=== PATIENT | female | born 1945 | race African-American/Black ===

== ENCOUNTER → 2016-10-26 | Outpatient (CLI) | payer MEDICARE, OTHER | LOC: WI 09:08 | PROVIDERS: ATTEND Internal Medicine | DX: Z12.31 Encounter for screening mammogram for malignant neoplasm of breast (principal) | CPT/HCPCS: 77063; G0202; 77067 ==

== ENCOUNTER → 2016-11-09 | Outpatient (CLI) | payer MEDICARE, OTHER | LOC: OD 14:13 | PROVIDERS: ATTEND Internal Medicine | DX: R05 Cough (principal) | CPT/HCPCS: 71020 ==

== ENCOUNTER → 2016-11-30 | Outpatient (CLI) | payer MEDICARE, OTHER ==
[2016-11-30 11:18] LABS: ALANINE AMINOTRANSFERASE 30 U/L (9-52); ALBUMIN 4.6 g/dL (3.5-5.0); ALKALINE PHOSPHATASE 55 U/L (38-126); ANION GAP 13 (5-19); ASPARTATE AMINO TRANSFERASE 17 U/L (14-36); BILIRUBIN,DIRECT 0.3 mg/dL (0.0-0.4); BILIRUBIN,TOTAL 1.1 mg/dL (0.2-1.3); BLOOD UREA NITROGEN 15 mg/dL (7-20); CALCIUM 10.4 mg/dL (8.4-10.2); CARBON DIOXIDE 28 mmol/L (22-30); CHLORIDE 103 mmol/L (98-107); CHOLESTEROL 145.89 mg/dL (0-200); CREATININE RESULT 0.63 mg/dL (0.52-1.25); Direct HDL 59 mg/dL (>40); GLUCOSE 145 mg/dL (75-110); POTASSIUM 3.8 mmol/L (3.6-5.0); SODIUM 143.6 mmol/L (137-145); TOTAL PROTEIN 7.1 g/dL (6.3-8.2); TRIGLYCERIDES 87 mg/dL (<150)
[2016-11-30 11:29] LABS: DIRECT LDL 63 mg/dL (<100)
== END ==
LOC: OD 10:04
PROVIDERS: ATTEND Internal Medicine
DX: I34.0 Nonrheumatic mitral (valve) insufficiency (principal); I10 Essential (primary) hypertension; I73.9 Peripheral vascular disease, unspecified; Z79.899 Other long term (current) drug therapy; G45.9 Transient cerebral ischemic attack, unspecified; E08.9 Diabetes mellitus due to underlying condition without complications; I49.3 Ventricular premature depolarization; I34.1 Nonrheumatic mitral (valve) prolapse; R94.30 Abnormal result of cardiovascular function study, unspecified; E78.5 Hyperlipidemia, unspecified; R94.31 Abnormal electrocardiogram [ECG] [EKG]; R00.2 Palpitations; M12.9 Arthropathy, unspecified; E66.9 Obesity, unspecified
CPT/HCPCS: 36415; 80053; 80061; 83036

== ENCOUNTER → 2017-03-20 | Outpatient (CLI) | payer MEDICARE, OTHER ==
[2017-03-20 09:11] LABS: APPEARANCE,URINE CLEAR; BILIRUBIN,URINE NEGATIVE (NEGATIVE); GLUCOSE, URINE NEGATIVE (NEGATIVE); KETONES,URINE NEGATIVE (NEGATIVE); LEUKOCYTE ESTERASE,URINE NEGATIVE (NEGATIVE); NITRITE,URINE NEGATIVE (NEGATIVE); PROTEIN,URINE NEGATIVE (NEGATIVE); UROBILINOGEN,URINE NEGATIVE mg/dL (<2.0)
[2017-03-20 09:13] LABS: HEMATOCRIT 36.2 % (36.0-47.0); HGB HCT DIFFERENCE -0.2; MEAN CORPUSCULAR HEMOGLOBIN 28.4 pg (27.0-33.4); MEAN CORPUSCULAR HGB CONC 33.1 g/dL (32.0-36.0); MEAN CORPUSCULAR VOLUME 86 fl (80-97); RED BLOOD COUNT 4.22 10^6/uL (3.72-5.28); RED CELL DISTRIBUTION WIDTH 13.6 % (11.5-14.0); WHITE BLOOD COUNT 5.3 10^3/uL (4.0-10.5)
[2017-03-20 09:33] LABS: ANION GAP 11 (5-19); BLOOD UREA NITROGEN 12 mg/dL (7-20); CALCIUM 9.8 mg/dL (8.4-10.2); CARBON DIOXIDE 27 mmol/L (22-30); CHLORIDE 100 mmol/L (98-107); GLUCOSE 152 mg/dL (75-110); POTASSIUM 3.7 mmol/L (3.6-5.0); SODIUM 137.8 mmol/L (137-145)
--- NOTE | 2017-03-20 11:00 | RADIOLOGY REPORT (SQ) ---
EXAM DESCRIPTION: DUPLEX ART/KENDRA FLOW COMPLETE COMPLETED DATE/TIME: 03/20/2017 9:53 am REASON FOR STUDY: ESSENTIAL HTN/ DIABETES MELLITIS TYPE 2 E11.9 TYPE 2 DIABETES MELLITUS WITHOUT CO MPLICATIONS I10 ESSENTIAL (PRIMARY) HYPERTENSION COMPARISON: None. TECHNIQUE: Realtime and static grayscale images acquired. Selected color Doppler, velocities and spe ctral images recorded. LIMITATIONS: None. FINDINGS: RIGHT KIDNEY: RENAL ARTERY VELOCITIES: 35.3 cm/sec. Segmental artery velocity 48.9 cm/sec. RENAL VEIN: Color doppler flow present, patent. VELOCITY RATIO: 1.1. Normal waveforms. KIDNEY: Normal size. No significant pathology. LEFT KIDNEY: RENAL ARTERY VELOCITIES: A 6.7 cm/sec. Segmental artery velocity 56.5 cm/sec. RENAL VEIN: Color doppler flow present, patent. VELOCITY RATIO: 1.27. Normal waveforms. KIDNEY: Normal size. No significant pathology. BLADDER: Normal. OTHER: No other significant finding. IMPRESSION: NO DOPPLER EVIDENCE OF HEMODYNAMICALLY SIGNIFICANT RENAL ARTERY STENOSIS. COMMENT: NORMAL RENAL ARTERY/AORTA VELOCITY RATIO IS LESS THAN OR EQUAL TO 3.5. TECHNICAL DOCUMENTATION: JOB ID: [id number] [employer]- All Rights Reserved
[2017-03-23 14:02] LABS: ALDOSTERONE 10.2 ng/dL (0.0-30.0)
== END ==
LOC: OD 08:04
PROVIDERS: ATTEND Internal Medicine Nephrology
DX: E11.9 Type 2 diabetes mellitus without complications (principal); I10 Essential (primary) hypertension
CPT/HCPCS: 36415; 80048; 81001; 82088; 84244; 85027; 93975

== ENCOUNTER → 2017-04-24 | Outpatient (CLI) | payer MEDICARE, OTHER ==
[2017-04-24 11:10] LABS: ANION GAP 14 (5-19); BLOOD UREA NITROGEN 16 mg/dL (7-20); CALCIUM 10.3 mg/dL (8.4-10.2); CARBON DIOXIDE 27 mmol/L (22-30); CHLORIDE 102 mmol/L (98-107); CREATININE RESULT 0.69 mg/dL (0.52-1.25); GLUCOSE 168 mg/dL (75-110); MAGNESIUM 1.3 mg/dL (1.6-2.3); POTASSIUM 3.9 mmol/L (3.6-5.0); SODIUM 143.2 mmol/L (137-145)
== END ==
LOC: OD 09:54
PROVIDERS: ATTEND Internal Medicine Nephrology
DX: I10 Essential (primary) hypertension (principal); E11.9 Type 2 diabetes mellitus without complications; R60.9 Edema, unspecified
CPT/HCPCS: 36415; 80048; 83735

== ENCOUNTER → 2017-05-08 | Outpatient (CLI) | payer MEDICARE, OTHER ==
[2017-05-08 12:15] LABS: ANION GAP 15 (5-19); BLOOD UREA NITROGEN 13 mg/dL (7-20); CALCIUM 10.6 mg/dL (8.4-10.2); CARBON DIOXIDE 26 mmol/L (22-30); CHLORIDE 101 mmol/L (98-107); CREATINE KINASE 60 U/L (30-135); CREATININE RESULT 0.67 mg/dL (0.52-1.25); GLUCOSE 150 mg/dL (75-110); LDH 396 U/L (313-618); MAGNESIUM 1.3 mg/dL (1.6-2.3); POTASSIUM 4.2 mmol/L (3.6-5.0); SODIUM 141.6 mmol/L (137-145)
== END ==
LOC: OD 11:01
PROVIDERS: ATTEND Internal Medicine Nephrology
DX: I12.9 Hypertensive chronic kidney disease with stage 1 through stage 4 chronic kidney disease, or unspecified chronic kidney disease (principal); N18.2 Chronic kidney disease, stage 2 (mild); E87.6 Hypokalemia; E11.9 Type 2 diabetes mellitus without complications
CPT/HCPCS: 36415; 80048; 82550; 83615; 83735

== ENCOUNTER 2017-09-05 19:00 | Emergency (ER) | payer MEDICARE, OTHER ==
--- NOTE | 2017-09-05 19:47 | ER Document Report ---
ED Medical Screen (RME) - General Chief Complaint: Irregular Pulse Stated Complaint: WEAKNESS Time Seen by Provider: 09/05/17 19:30 Mode of Arrival: Wheelchair Information source: Patient Notes: Patient is a 72-year-old female who presents with a low heart rate that started yesterday. She states she has a documented heart rate of 41 yesterday and this morning she noted it was 31 and again checked at this afternoon and it was 31 at rest. She denies any true chest pain but endorses some left-sided chest pressure that started when she got here in the emergency room. She has an appointment with cardiology tomorrow but was concerned about staying at home with such a low heart rate today. She has a past medical history significant for high blood pressure and is on 4 different medications but is not currently on a beta-zenaida. She also has history of cold high cholesterol and diabetes and is not on any blood thinners. She has no history of CAD, OR but does have a history of bradycardia that was 4 years ago prior to surgery while she was on a beta-zenaida. Endorses some associated generalized weakness but denies any syncope, headache, changes in vision, shortness of breath. TRAVEL OUTSIDE OF THE [place] IN LAST 30 DAYS: No - Related Data Allergies/Adverse Reactions: citalopram [Citalopram] Allergy (Unknown, Verified 09/15/15 07:28) Weak, AMS. arms weak Past Medical History - Past Medical History Cardiac Medical History: Reports: Hx Coronary Artery Disease, Hx Hypercholesterolemia, Hx Hypertension - medicated, Hx Heart Murmur Denies: Hx Heart Attack Pulmonary Medical History: Reports: Hx Bronchitis, Hx Pneumonia Denies: Hx Asthma, Hx COPD, Hx Tuberculosis Neurological Medical History: Denies: Hx Cerebrovascular Accident, Hx Seizures Endocrine Medical History: Reports: Hx Diabetes Mellitus Type 2 GI Medical History: Reports: Hx Gastroesophageal Reflux Disease. Denies: Hx Hepatitis, Hx Hiatal Hernia, Hx Ulcer Musculoskeltal Medical History: Reports Hx Arthritis Psychiatric Medical History: Reports: Hx Depression Infectious Medical History: Denies: Hx Hepatitis Past Surgical History: Reports: Hx Section, Hx Hysterectomy, Hx Orthopedic Surgery - rotator cuff - rt, BTKR, Hx Thyroid Surgery, Hx Tubal Ligation. Denies: Hx Mastectomy, Hx Open Heart Surgery, Hx Pacemaker - Immunizations Hx Diphtheria, Pertussis, Tetanus Vaccination: Yes Review of Systems - Review of Systems Constitutional: denies: Fever Cardiovascular: denies: Chest pain, Dizziness, Lightheaded Physical Exam - Vital signs Vitals: Temp Pulse Resp BP Pulse Ox 98.4 F 35 L 20 156/50 H 99 09/05/17 19:17 09/05/17 19:17 09/05/17 19:17 09/05/17 19:17 09/05/17 19:17 Course - Re-evaluation Re-evalutation: 09/05/17 19:47 I have greeted and performed a rapid initial assessment of this patient. A comprehensive ED assessment and evaluation of the patient, analysis of test results and completion of the medical decision making process will be conducted by additional ED providers. - Vital Signs Vital signs: Temp Pulse Resp BP Pulse Ox 98.4 F 35 L 20 156/50 H 99 09/05/17 19:17 09/05/17 19:17 09/05/17 19:17 09/05/17 19:17 09/05/17 19:17
--- NOTE | 2017-09-05 20:41 | ER Document Report ---
ED Cardiac - General Chief Complaint: Irregular Pulse Stated Complaint: WEAKNESS Time Seen by Provider: 09/05/17 19:30 Mode of Arrival: Wheelchair TRAVEL OUTSIDE OF THE [place] IN LAST 30 DAYS: No - HPI Notes: 72-year-old female with history of hypertension presents with bradycardia. She monitors her heart rate daily and blood pressure notes her heart rate has decreased into the 30s. She has noticed some generalized weakness but has no other associated symptoms. She has some chronic left-sided chest pain which she states are from bone spurs but has no new chest discomfort. When asked about the chest pressure noted in the rapid medical exam, she states nothing seems different than normal except the generalized weakness. She has no shortness of breath. She has not had any medication changes. She brings a list of her heart rates which shows it normally in the 60s or upper 50s and then 40 yesterday and 31 today. She does feel occasional palpitation of the slow skipping feeling but does not currently have any. She denies recent illness, fever cough or cold symptoms. She is on no beta-blockers. She had been on Norvasc distantly but no longer on this. See medication list which includes hydrochlorothiazide valsartan and hydralazine. She states she has a history of a heart murmur. She is followed by Dr. Delgadillo's office. - Related Data Allergies/Adverse Reactions: citalopram [Citalopram] Allergy (Unknown, Verified 09/15/15 07:28) Weak, AMS. arms weak Past Medical History - General Information source: Patient - Social History Smoking Status: Never Smoker Chew tobacco use (# tins/day): No Frequency of alcohol use: None Drug Abuse: None Family History: Reviewed & Not Pertinent Patient has suicidal ideation: No Patient has homicidal ideation: No - Past Medical History Cardiac Medical History: Reports: Hx Coronary Artery Disease, Hx Hypercholesterolemia, Hx Hypertension - medicated, Hx Heart Murmur Denies: Hx Heart Attack Pulmonary Medical History: Reports: Hx Bronchitis, Hx Pneumonia Denies: Hx Asthma, Hx COPD, Hx Tuberculosis Neurological Medical History: Denies: Hx Cerebrovascular Accident, Hx Seizures Endocrine Medical History: Reports: Hx Diabetes Mellitus Type 2 Renal/ Medical History: Denies: Hx Peritoneal Dialysis GI Medical History: Reports: Hx Gastroesophageal Reflux Disease. Denies: Hx Hepatitis, Hx Hiatal Hernia, Hx Ulcer Musculoskeltal Medical History: Reports Hx Arthritis Psychiatric Medical History: Reports: Hx Depression Infectious Medical History: Denies: Hx Hepatitis Past Surgical History: Reports: Hx Section, Hx Hysterectomy, Hx Orthopedic Surgery - rotator cuff - rt, BTKR, Hx Thyroid Surgery, Hx Tubal Ligation. Denies: Hx Mastectomy, Hx Open Heart Surgery, Hx Pacemaker - Immunizations Hx Diphtheria, Pertussis, Tetanus Vaccination: Yes Hx Pneumococcal Vaccination: 08/14/12 Review of Systems - Review of Systems -: Yes All other systems reviewed and negative Physical Exam - Vital signs Vitals: Temp Pulse Resp BP Pulse Ox 98.4 F 35 L 20 156/50 H 99 09/05/17 19:17 09/05/17 19:17 09/05/17 19:17 09/05/17 19:17 09/05/17 19:17 Interpretation: Bradycardic - Notes Notes: Physical Exam: GENERAL: VS as per nursing doc. Well-appearing, well-nourished and in no acute distress. HEAD: Atraumatic, normocephalic. EYES: Pupils equal round and reactive to light, extraocular movements intact, sclera anicteric, no conjunctival injection or discharge. ENT: Nares patent, oropharynx clear without exudates. Moist mucous membranes. NECK: Normal range of motion, supple without lymphadenopathy. No JVD. No Carotid Bruits. LUNGS: Breath sounds clear to auscultation bilaterally and equal. No wheezes rales or rhonchi. HEART: Normal S1S2. Patient has a normal sinus rhythm at some points on the monitor with a regular palpable pulse, other times shows ventricular bigeminy where there is no pulse noted with the ventricular beat only the [place] narrow QRS. The baseline rhythm when it is normal sinus is regular and normal rate but low. ABDOMEN: Soft, non-tender. EXTREMITIES: Normal range of motion. No calf tenderness. Negative Homans. No edema. NEUROLOGICAL: Cranial nerves grossly intact. Normal speech. Normal sensory and motor exams. No gross cerebellar abnormalities. PSYCH: Normal mood, normal affect. SKIN: Warm, dry, no cyanosis. Cap refill < 2 sec. Course - Re-evaluation Re-evalutation: 09/05/17 22:[address] Bolaños. Patient remained stable here still though having intermittent ventricular bigeminy without the ventricular beats perfusing. She essentially is asymptomatic though except for some mild weakness and is ambulatory. I will wait and see if he contacts us back. Her labs show no significant abnormality. 09/05/17 23:34 Offered the patient admission with transfer for further cardiology evaluation as I was unable to get a hold of Dr. Bolaños again. They refused this after understanding risk. She understands she potentially could need a pacemaker. She does agree to go see the lead scientist morning as scheduled and agrees to return if she is worsening at all, developing symptoms to include chest discomfort shortness of breath dizziness, diaphoresis or changes her mind. She is aware of these risks verbalizes and voices understanding. - Vital Signs Vital signs: Temp Pulse Resp BP Pulse Ox 98.4 F 35 L 24 H 153/55 H 99 09/05/17 19:17 09/05/17 19:17 09/05/17 23:37 09/05/17 23:37 09/05/17 19:17 - Laboratory Result Diagrams: 09/05/17 20:35 09/05/17 20:35 Laboratory results interpreted by me: 09/05/17 20:35 BUN 24 H Est GFR (Non-Af Amer) 52 L Glucose 142 H Calcium 11.1 H Discharge - Discharge Clinical Impression: Bradycardia Condition: Good Disposition: HOME, SELF-CARE Additional Instructions: Please return immediately if you are developing symptoms to include chest discomfort shortness of breath, dizziness, sweating, excessive weakness or other change. Follow-up with your lead scientist as scheduled tomorrow. Take the EKG with you as well. Referrals: AVELINO BOLAÑOS MD [ACTIVE STAFF] - Follow up tomorrow
[2017-09-05 20:50] LABS: ABSOLUTE EOSINOPHILS # (AUTO) 0.2 10^3/uL (0.0-0.6); ABSOLUTE LYMPHOCYTES (AUTO) 2.4 10^3/uL (0.5-4.7); ABSOLUTE MONOCYTES (AUTO) 0.6 10^3/uL (0.1-1.4); ABSOLUTE NEUT (AUTO) 3.9 10^3/uL (1.7-8.2); BASOPHILS % (AUTO) 0.7 % (0-2); EOSINOPHILS % (AUTO) 2.2 % (0-6); HEMOGLOBIN 12.2 g/dL (12.0-15.5); LYMPHOCYTES % (AUTO) 33.9 % (13-45); MEAN CORPUSCULAR HEMOGLOBIN 28.1 pg (27.0-33.4); MEAN CORPUSCULAR HGB CONC 32.9 g/dL (32.0-36.0); MEAN CORPUSCULAR VOLUME 85 fl (80-97); MONOCYTES % (AUTO) 8.7 % (3-13); PLATELET COUNT 243 10^3/uL (150-450); RED BLOOD COUNT 4.33 10^6/uL (3.72-5.28); RED CELL DISTRIBUTION WIDTH 13.6 % (11.5-14.0); SEGMENTED NEUTROPHILS % (AUTO) 54.5 % (42-78); TOTAL CELLS COUNTED % (AUTO) 100 %; WHITE BLOOD COUNT 7.2 10^3/uL (4.0-10.5)
--- NOTE | 2017-09-05 20:52 | RADIOLOGY REPORT (SQ) ---
EXAM DESCRIPTION: CHEST SINGLE VIEW COMPLETED DATE/TIME: 09/05/2017 8:44 pm REASON FOR STUDY: Weakness COMPARISON: 11/09/2016. NUMBER OF VIEWS: One view. TECHNIQUE: Single frontal radiographic view of the chest acquired. LIMITATIONS: None. FINDINGS: LUNGS AND PLEURA: No opacities, masses or pneumothorax. No pleural effusion. MEDIASTINUM AND HILAR STRUCTURES: No masses. Contour normal. HEART AND VASCULAR STRUCTURES: Heart enlarged without failure. Normal vasculature. BONES: No acute findings. HARDWARE: Hardware in the right shoulder OTHER: No other significant finding. IMPRESSION: HEART ENLARGED WITHOUT FAILURE. NO OTHER SIGNIFICANT RADIOGRAPHIC FINDING IN THE CHEST. TECHNICAL DOCUMENTATION: JOB ID: [id number] [employer]- All Rights Reserved
[2017-09-05 21:08] LABS: ANION GAP 11 (5-19); BLOOD UREA NITROGEN 24 mg/dL (7-20); CALCIUM 11.1 mg/dL (8.4-10.2); CARBON DIOXIDE 27 mmol/L (22-30); CHLORIDE 102 mmol/L (98-107); GLUCOSE 142 mg/dL (75-110); MAGNESIUM 1.8 mg/dL (1.6-2.3); POTASSIUM 4.2 mmol/L (3.6-5.0); SODIUM 139.8 mmol/L (137-145)
[2017-09-05 21:19] LABS: CREATINE KINASE MB 0.68 ng/mL (<4.55); TROPONIN I 0.021 ng/mL
[2017-09-05 23:39] VITALS: BP 153/55
--- NOTE | 2017-09-06 08:48 | EKG REPORT ---
SEVERITY:- ABNORMAL ECG - SINUS OR ECTOPIC ATRIAL RHYTHM VENTRICULAR BIGEMINY BORDERLINE T WAVE ABNORMALITIES : Confirmed by: Emili Bolaños MD 06-Sep-2017 08:47:24
== END 2017-09-05 23:47 | disposition home or self-care (01) ==
LOC: ER 19:00
DX: R00.1 Bradycardia, unspecified (principal); R00.8 Other abnormalities of heart beat; R53.1 Weakness; E11.9 Type 2 diabetes mellitus without complications; I25.10 Atherosclerotic heart disease of native coronary artery without angina pectoris; I10 Essential (primary) hypertension; Z79.899 Other long term (current) drug therapy; Z88.8 Allergy status to other drugs, medicaments and biological substances
CPT/HCPCS: 36415; 71045; 80048; 82553; 83735; 84484; 85025; 93005; 93010; 99284

== ENCOUNTER 2017-09-11 11:18 | Emergency (ER) | payer MEDICARE, OTHER ==
--- NOTE | 2017-09-11 11:43 | ER Document Report ---
ED Medical Screen (RME) - General Chief Complaint: Irregular Pulse Stated Complaint: HEART ISSUES Time Seen by Provider: 09/11/17 11:41 Mode of Arrival: Wheelchair Information source: Patient, Relative TRAVEL OUTSIDE OF THE [place] IN LAST 30 DAYS: No - HPI Patient complains to provider of: low HR Onset: Other - Pt was seen in ED for bradycardia last week and had appt. with Dr. Delgadillo after that. Is scheduled to see Dr. Hobbs in [facility] [place] but had low HR earlier this am and was told to go to ED - Related Data Allergies/Adverse Reactions: citalopram [Citalopram] Allergy (Unknown, Verified 09/11/17 11:22) Weak, AMS. arms weak Past Medical History - Social History Chew tobacco use (# tins/day): No Frequency of alcohol use: None Drug Abuse: None - Past Medical History Cardiac Medical History: Reports: Hx Coronary Artery Disease, Hx Hypercholesterolemia, Hx Hypertension - medicated, Hx Heart Murmur Denies: Hx Heart Attack Pulmonary Medical History: Reports: Hx Bronchitis, Hx Pneumonia Denies: Hx Asthma, Hx COPD, Hx Tuberculosis Neurological Medical History: Denies: Hx Cerebrovascular Accident, Hx Seizures Endocrine Medical History: Reports: Hx Diabetes Mellitus Type 2 Renal/ Medical History: Denies: Hx Peritoneal Dialysis GI Medical History: Reports: Hx Gastroesophageal Reflux Disease. Denies: Hx Hepatitis, Hx Hiatal Hernia, Hx Ulcer Musculoskeltal Medical History: Reports Hx Arthritis Psychiatric Medical History: Reports: Hx Depression Infectious Medical History: Denies: Hx Hepatitis Past Surgical History: Reports: Hx Section, Hx Hysterectomy, Hx Orthopedic Surgery - rotator cuff - rt, BTKR, Hx Thyroid Surgery, Hx Tubal Ligation. Denies: Hx Mastectomy, Hx Open Heart Surgery, Hx Pacemaker - Immunizations Hx Diphtheria, Pertussis, Tetanus Vaccination: Yes Physical Exam - Vital signs Vitals: Temp Pulse Resp BP Pulse Ox 98.4 F 60 14 131/57 H 98 09/11/17 11:25 09/11/17 11:09/11/17 11:09/11/17 11:09/11/17 11:25 Course - Vital Signs Vital signs: Temp Pulse Resp BP Pulse Ox 98.4 F 60 15 131/57 H 98 09/11/17 11:25 09/11/17 11:25 09/11/17 11:29 09/11/17 11:25 09/11/17 11:25
[2017-09-11 12:12] LABS: ABSOLUTE EOSINOPHILS # (AUTO) 0.1 10^3/uL (0.0-0.6); ABSOLUTE LYMPHOCYTES (AUTO) 1.4 10^3/uL (0.5-4.7); ABSOLUTE MONOCYTES (AUTO) 0.3 10^3/uL (0.1-1.4); BASOPHILS % (AUTO) 0.4 % (0-2); EOSINOPHILS % (AUTO) 1.9 % (0-6); HEMATOCRIT 36.3 % (36.0-47.0); HEMOGLOBIN 11.7 g/dL (12.0-15.5); MEAN CORPUSCULAR HEMOGLOBIN 27.6 pg (27.0-33.4); MEAN CORPUSCULAR HGB CONC 32.2 g/dL (32.0-36.0); MEAN CORPUSCULAR VOLUME 86 fl (80-97); MONOCYTES % (AUTO) 7.1 % (3-13); PLATELET COUNT 257 10^3/uL (150-450); RED BLOOD COUNT 4.23 10^6/uL (3.72-5.28); RED CELL DISTRIBUTION WIDTH 13.4 % (11.5-14.0); SEGMENTED NEUTROPHILS % (AUTO) 61.6 % (42-78); TOTAL CELLS COUNTED % (AUTO) 100 %; WHITE BLOOD COUNT 4.9 10^3/uL (4.0-10.5)
[2017-09-11 12:26] LABS: ALANINE AMINOTRANSFERASE 22 U/L (9-52); ALBUMIN 4.5 g/dL (3.5-5.0); ALKALINE PHOSPHATASE 64 U/L (38-126); ANION GAP 11 (5-19); ASPARTATE AMINO TRANSFERASE 17 U/L (14-36); BILIRUBIN,DIRECT 0.1 mg/dL (0.0-0.4); BILIRUBIN,TOTAL 0.6 mg/dL (0.2-1.3); BLOOD UREA NITROGEN 17 mg/dL (7-20); CARBON DIOXIDE 26 mmol/L (22-30); CHLORIDE 104 mmol/L (98-107); CREATINE KINASE 50 U/L (30-135); GLUCOSE 140 mg/dL (75-110); POTASSIUM 4.2 mmol/L (3.6-5.0)
[2017-09-11 12:37] LABS: CREATINE KINASE MB 0.53 ng/mL (<4.55); TROPONIN I 0.019 ng/mL
--- NOTE | 2017-09-11 12:49 | EKG REPORT ---
SEVERITY:- BORDERLINE ECG - SINUS RHYTHM BORDERLINE T WAVE ABNORMALITIES : Confirmed by: Nicko Gonzales MD 11-Sep-2017 12:49:15
[2017-09-11 12:55] VITALS: BP 162/76
--- NOTE | 2017-09-11 13:03 | ER Document Report ---
ED General - General Chief Complaint: Irregular Pulse Stated Complaint: HEART ISSUES Time Seen by Provider: 09/11/17 11:41 Mode of Arrival: Wheelchair Notes: 72-year-old lady with hypertension on hydralazine and Hydrocort thiazide presenting with bradycardia. She has been feeling fatigued for about a week. Every morning she takes her vitals and her heart rate has been as low as 30. When it is low she does not have chest pain or nausea but has been having intermittent chest pain for the last few days which she associates with her arthritis. She was called in here by Dr. Bolaños. He did an echo which was normal and a stress test which was normal but when I talked to him on the phone this morning he stated that the patient was" ectopic atrial bradycardia." She does not take beta blockers or calcium channel blockers. Her heart rate in the ED so far is been in the 50s-60s. Reviewing her past EKG looks like she was in right ventricular bigeminy previously. TRAVEL OUTSIDE OF THE [place] IN LAST 30 DAYS: No - Related Data Allergies/Adverse Reactions: citalopram [Citalopram] Allergy (Unknown, Verified 09/11/17 11:22) Weak, AMS. arms weak Past Medical History - General Information source: Patient, Relative - Social History Smoking Status: Former Smoker Chew tobacco use (# tins/day): No Frequency of alcohol use: None Drug Abuse: None Family History: Reviewed & Not Pertinent Patient has suicidal ideation: No Patient has homicidal ideation: No - Past Medical History Cardiac Medical History: Reports: Hx Coronary Artery Disease, Hx Hypercholesterolemia, Hx Hypertension - medicated, Hx Heart Murmur Denies: Hx Heart Attack Pulmonary Medical History: Reports: Hx Bronchitis, Hx Pneumonia Denies: Hx Asthma, Hx COPD, Hx Tuberculosis Neurological Medical History: Denies: Hx Cerebrovascular Accident, Hx Seizures Endocrine Medical History: Reports: Hx Diabetes Mellitus Type 2 Renal/ Medical History: Denies: Hx Peritoneal Dialysis GI Medical History: Reports: Hx Gastroesophageal Reflux Disease. Denies: Hx Hepatitis, Hx Hiatal Hernia, Hx Ulcer Musculoskeltal Medical History: Reports Hx Arthritis Psychiatric Medical History: Reports: Hx Depression Infectious Medical History: Denies: Hx Hepatitis Past Surgical History: Reports: Hx Section, Hx Hysterectomy, Hx Orthopedic Surgery - rotator cuff - rt, BTKR, Hx Thyroid Surgery, Hx Tubal Ligation. Denies: Hx Mastectomy, Hx Open Heart Surgery, Hx Pacemaker - Immunizations Hx Diphtheria, Pertussis, Tetanus Vaccination: Yes Hx Pneumococcal Vaccination: 08/14/12 Review of Systems - Review of Systems Notes: REVIEW OF SYSTEMS GEN: Denies fever, chills, weight loss ENT: Denies sore throat, nasal discharge, ear pain EYES: Denies blurry vision, eye pain, discharge CV: Intermittent chest pain no palpitations or edema. No syncope.. Positive generalized fatigue and lack of energy. RESP: Denies cough, shortness of breath, wheezing GI: Denies abdominal pain, nausea, vomiting, diarrhea MSK: Denies joint pain/swelling, edema, SKIN: Denies rash, skin lesions LYMPH: Denies swollen glands/lymph nodes NEURO: Denies headache, focal weakness or numbness, dizziness PSYCH: Denies depression, suicidal or homicidal ideation PHYSICAL EXAMINATION General: No acute distress, well-nourished Head: Atraumatic, normocephalic ENT: Mouth normal, oropharynx moist, no exudates or tonsillar enlargement Eyes: Conjunctiva normal, pupils equal, lids normal Neck: No JVD, supple, no guarding CVS: Normal rate, regular rhythm, no murmurs Resp: No resp distress, equal and normal breath sounds bilaterally GI: Nondistended, soft, no tenderness to palpation, no rebound or guarding Ext: No deformities, no edema, normal range of motion in upper and lower ext Back: No CVA or midline TTP Skin: No rash, warm Lymphatic: No lymphadeopathy noted Neuro: Awake, alert. Face symmetric. GCS 15. Physical Exam - Vital signs Vitals: Temp Pulse Resp BP Pulse Ox 98.4 F 60 14 131/57 H 98 09/11/17 11:25 09/11/17 11:25 09/11/17 11:25 09/11/17 11:25 09/11/17 11:25 Course - Re-evaluation Re-evalutation: 09/11/17 13:02 This 72-year-old lady with hypertension not on a beta-zenaida presented with bradycardia. She has been fatigued for about a week and it does not seem to correspond with her low heart rate. In the ED she is between the 50s and 60s. Dr. Bolaños, however reports that she was at a bradycardia arrhythmia in his office this morning. I do not think this is med related as her 2 antihypertensives are not known to cause bradycardia. She stable in ED. Labs ordered at triage are normal including a troponin. 09/11/17 13:21 Elect lites are normal. EKG shows sinus bradycardia. I spoke with Dr. Delarosa from [facility] cardiology group. Patient does not seem to be symptomatic in that she has fatigue but no clamminess nausea chest pain or fainting. He recommended she follow-up in the office tomorrow when he called both the [place] and [place] office to ensure she had follow-up in the office. He requested I give her her EKG that she can hand transported.. Her heart rate at the time of discharge was 60 sinus bradycardia on the monitor. We discussed this with family and they agree. I think she is stable to be discharged as she got excellent follow-up. Insert discharge - Vital Signs Vital signs: Temp Pulse Resp BP Pulse Ox 98.4 F 60 13 162/76 H 100 09/11/17 11:25 09/11/17 11:25 09/11/17 13:12 09/11/17 13:12 09/11/17 13:12 - Laboratory Result Diagrams: 09/11/17 11:54 09/11/17 11:54 Laboratory results interpreted by me: 09/11/17 09/11/17 11:54 11:54 Hgb 11.7 L Glucose 140 H Calcium 11.0 H - EKG Interpretation by Ct EKG shows normal: Sinus rhythm Rate: Normal Rhythm: NSR When compared to previous EKG there are: Changes noted - Sinus bradycardia Discharge - Discharge Clinical Impression: Bradycardia, Bradycardia on ECG Condition: Good Disposition: HOME, SELF-CARE Instructions: Dizziness ([facility]) Additional Instructions: Your heart rate has been low. You have an abnormal EKG. I given you a copy of this EKG. I spoke with Dr. Delarosa from [facility]. He will schedule you for an appointment in [place] tomorrow. Please call their office today to ensure that time and location.
== END 2017-09-11 13:41 | disposition home or self-care (01) ==
LOC: ER 11:18
DX: R00.1 Bradycardia, unspecified (principal); I10 Essential (primary) hypertension; Z79.899 Other long term (current) drug therapy; M19.90 Unspecified osteoarthritis, unspecified site; R07.9 Chest pain, unspecified; R53.83 Other fatigue; I25.10 Atherosclerotic heart disease of native coronary artery without angina pectoris; E11.9 Type 2 diabetes mellitus without complications; Z87.891 Personal history of nicotine dependence; Z88.8 Allergy status to other drugs, medicaments and biological substances
CPT/HCPCS: 36415; 80053; 82550; 82553; 84484; 85025; 93005; 93010; 99284

== ENCOUNTER → 2017-09-25 | Outpatient (CLI) | payer MEDICARE, OTHER ==
[2017-09-25 12:34] LABS: HEMOGLOBIN 11.9 g/dL (12.0-15.5); MEAN CORPUSCULAR HEMOGLOBIN 28.5 pg (27.0-33.4); MEAN CORPUSCULAR HGB CONC 33.1 g/dL (32.0-36.0); MEAN CORPUSCULAR VOLUME 86 fl (80-97); RED BLOOD COUNT 4.19 10^6/uL (3.72-5.28); WHITE BLOOD COUNT 8.3 10^3/uL (4.0-10.5)
[2017-09-25 12:35] LABS: APPEARANCE,URINE SLIGHTLY-CLOUDY; BILIRUBIN,URINE NEGATIVE (NEGATIVE); COLOR,URINE YELLOW; GLUCOSE, URINE NEGATIVE (NEGATIVE); KETONES,URINE NEGATIVE (NEGATIVE); LEUKOCYTE ESTERASE,URINE TRACE (NEGATIVE); NITRITE,URINE NEGATIVE (NEGATIVE); PROTEIN,URINE NEGATIVE (NEGATIVE); URINE SPECIFIC GRAVITY 1.016; UROBILINOGEN,URINE NEGATIVE mg/dL (<2.0)
[2017-09-25 12:57] LABS: ANION GAP 11 (5-19); BLOOD UREA NITROGEN 22 mg/dL (7-20); CALCIUM 10.7 mg/dL (8.4-10.2); CARBON DIOXIDE 27 mmol/L (22-30); CHLORIDE 101 mmol/L (98-107); GLUCOSE 173 mg/dL (75-110); PLATELET COUNT 208 10^3/uL (150-450); POTASSIUM 4.4 mmol/L (3.6-5.0); SODIUM 139.1 mmol/L (137-145)
[2017-09-26 13:39] LABS: CREATININE URINE 120.2 mg/dL (Not Estab.); MICROALBUMIN URINE 35.5 ug/mL (Not Estab.)
== END ==
LOC: OD 11:24
PROVIDERS: ATTEND Internal Medicine Nephrology
DX: E83.42 Hypomagnesemia (principal); E11.9 Type 2 diabetes mellitus without complications; E87.5 Hyperkalemia; I12.9 Hypertensive chronic kidney disease with stage 1 through stage 4 chronic kidney disease, or unspecified chronic kidney disease; N18.9 Chronic kidney disease, unspecified
CPT/HCPCS: 36415; 80048; 81001; 82043; 82570; 85027

== ENCOUNTER → 2017-11-02 | Outpatient (CLI) | payer MEDICARE, OTHER ==
[2017-11-02 09:08] LABS: ANION GAP 8 (5-19); BLOOD UREA NITROGEN 19 mg/dL (7-20); CALCIUM 10.5 mg/dL (8.4-10.2); CARBON DIOXIDE 29 mmol/L (22-30); CHLORIDE 106 mmol/L (98-107); GLUCOSE 135 mg/dL (75-110); POTASSIUM 4.4 mmol/L (3.6-5.0); SODIUM 142.7 mmol/L (137-145)
== END ==
LOC: OD 08:19
PROVIDERS: ATTEND Internal Medicine Nephrology
DX: I12.9 Hypertensive chronic kidney disease with stage 1 through stage 4 chronic kidney disease, or unspecified chronic kidney disease (principal); E11.9 Type 2 diabetes mellitus without complications; E87.5 Hyperkalemia; E83.42 Hypomagnesemia
CPT/HCPCS: 36415; 80048; 83735

== ENCOUNTER → 2017-11-09 | Outpatient (CLI) | payer MEDICARE, OTHER ==
--- NOTE | 2017-11-09 16:38 | WOMENS IMAGING REPORT ---
EXAM DESCRIPTION: 3D SCREENING MAMMO BILAT COMPLETED DATE/TIME: 11/09/2017 11:20 am REASON FOR STUDY: ROUTINE BILATERAL SCREENING;Z12.31 Z12.31 ENCNTR SCREEN MAMMOGRAM FOR MALIGNANT N EOPLASM OF JOHNNA COMPARISON: 2013 to 2016 TECHNIQUE: Standard craniocaudal and mediolateral oblique views of each breast recorded using digita l acquisition and breast tomosynthesis. LIMITATIONS: None. FINDINGS: No masses, calcifications or architectural distortion. No areas of suspicion. Read with the assistance of CAD. .[facility] - R2 [employer] Version 1.3 .[facility] - R2 Cenova Version 1.3 .[facility] - R2 Cenova Version 2.4 .[facility] - R2 Cenova Version 2.4 .[facility] - R2 Medical Staff Coordinator Version 9.2 IMPRESSION: NORMAL MAMMOGRAM. BIRADS 1. BREAST DENSITY: c. The breasts are heterogeneously dense, which may obscure small masses. BIRAD: 1 NEGATIVE RECOMMENDATION: ROUTINE SCREENING COMMENT: The patient has been notified of the results by letter per SA requirements. Additional no tification policies are in place for contacting patient with suspicious or incomplete findings. Quality ID #[id number]: The [employer] recommends an annual screening mammogram for women aged 40 years or over. This facility utilizes a reminder system to ensure that all patients receive reminder letters, and/or direct phone calls for appointments. This includes reminders for routine scr eening mammograms, diagnostic mammograms, or other Breast Imaging Interventions when appropriate. Th is patient will be placed in the appropriate reminder system. The [employer] (ACR) has developed recommendations for screening MRI of the breast s in certain patient populations, to be used in conjunction with mammography. Breast MRI surveillanc e may be appropriate for women with more than 20% lifetime risk of developing breast cancer as deter mined by genetic testing, significant family history of the disease, or history of mantle radiation f or Hodgkins Disease. ACR Practice Guidelines 2008. DBT Technology DBT is a type of tomographic mammography. With conventional mammography, overlapping breast tissue ma y make lesions difficult to detect, even with good compression. DBT uses an x-ray tube that rotates a round the breast, taking images at different angles. These images are then combined to create thin sl ices of the breast that the radiologist can view as a 3D reconstruction. The [employer] unit can perform full-field digital mammograms (2D imaging); or DBT (3D imaging); or both, in a combination mode that quickly performs both the mammogram and the tomosynthesis scan while the breast is still compressed. PQRS 6045F: Fluoroscopic imaging is not utilized for breast tomosynthesis. TECHNICAL DOCUMENTATION: FINDING NUMBER: (1) ASSESSMENT: (1) JOB ID: [id number] [employer]- All Rights Reserved Reading location - IP/workstation name: [email or web address]
== END ==
LOC: WI 10:55
PROVIDERS: ATTEND Internal Medicine
DX: Z12.31 Encounter for screening mammogram for malignant neoplasm of breast (principal)
CPT/HCPCS: 77063; 77067

== ENCOUNTER → 2018-01-05 | Outpatient (CLI) | payer MEDICARE, OTHER ==
[2018-01-05 12:46] LABS: ANION GAP 13 (5-19); BLOOD UREA NITROGEN 24 mg/dL (7-20); CALCIUM 10.6 mg/dL (8.4-10.2); CARBON DIOXIDE 27 mmol/L (22-30); CHLORIDE 104 mmol/L (98-107); GLUCOSE 129 mg/dL (75-110); POTASSIUM 4.7 mmol/L (3.6-5.0); SODIUM 143.9 mmol/L (137-145)
== END ==
LOC: OD 11:44
PROVIDERS: ATTEND Internal Medicine Nephrology
DX: I10 Essential (primary) hypertension (principal); E11.9 Type 2 diabetes mellitus without complications; E83.42 Hypomagnesemia; E87.6 Hypokalemia
CPT/HCPCS: 36415; 80048; 83735

== ENCOUNTER → 2018-03-15 | Outpatient (CLI) | payer MEDICARE, OTHER ==
--- NOTE | 2018-03-15 14:52 | RADIOLOGY REPORT (SQ) ---
EXAM DESCRIPTION: CT LUMBAR SPINE WITHOUT COMPLETED DATE/TIME: 03/15/2018 12:50 pm REASON FOR STUDY: M51.36 OTHER INTERVERTEBRAL DISC DEGENERATION, LUMBAR REGION M54.16 RADICULOPATHY , LUMBAR REGION M51.36 OTHER INTERVERTEBRAL DISC DEGENERATION, LUMBAR REGION COMPARISON: None. TECHNIQUE: Axial images acquired through the lumbar spine without intravenous contrast. Images revi ewed with lung, soft tissue and bone windows. Reconstructed coronal and sagittal MPR images reviewed . All images stored on PACS. All CT scanners at this facility use dose modulation, iterative reconstruction, and/or weight based d osing when appropriate to reduce radiation dose to as low as reasonably achievable (ALARA). [facility]: Dose Right [facility]: CareDose [facility]: Dose Right [facility]: Teradose 4D [facility]: Smart Technologies RADIATION DOSE: CT Rad equipment meets quality standard of care and radiation dose reduction techniq ues were employed. CTDIvol: 19.2 mGy. DLP: 488 mGy-cm. mGy. LIMITATIONS: None. FINDINGS: SEGMENTATION: Normal. No transitional anatomy. ALIGNMENT: Mild anterolisthesis of L2 over L3, L3 over L4, and L4 over L5. VERTEBRAL BODIES: No fractures. No dislocation. No acute findings. DISCS: Limited by lack of intrathecal contrast T11-12: Mild bilateral facet hypertrophy and ligamentum flavum thickening. No significant central o r foraminal encroachment. T12-L1: Minimal posterior disc bulging, mild bilateral facet and ligament hypertrophy. Borderline c entral canal narrowing. Moderate right foraminal narrowing, mild left foraminal narrowing. L1-2: Minimal posterior disc bulging is present, moderate bilateral facet and ligament hypertrophy. Borderline central canal stenosis. There is moderate right and pubc-kt-icoakekr left foraminal narr owing. L2-3: Broad diffuse posterior disc bulge and bony spurring is present, with bulky bilateral facet an d ligament hypertrophy. Grade 1 anterolisthesis of L2 over L3. Moderate central canal stenosis is p resent best shown on sagittal image 25 and axial image 47. There is moderate bilateral foraminal iglesia rowing. L3-4: Broad diffuse posterior disc bulge and bony spurring is present, with bulky bilateral facet an d ligament hypertrophy and grade 1 anterolisthesis of L3 over L4. Moderate central canal stenosis is present, best shown on axial image 57. There is high-grade right and moderate left foraminal narrow ing. L4-5: Broad diffuse posterior disc bulge and bony spurring is present with bulky bilateral facet and ligament hypertrophy. Minimal grade 1 anterolisthesis of L4 over L5. Borderline central canal sten osis. Moderate right, high-grade left foraminal narrowing. L5-S1: Mild diffuse posterior disc bulge and bony spurring is present. No central stenosis. Bulky bilateral facet hypertrophy. Mild bilateral foraminal narrowing. HARDWARE: None in the spine. SOFT TISSUES: Incidental finding of a 3 cm left adrenal adenoma. OTHER: No other significant finding. IMPRESSION: Multilevel degenerative changes as above. TECHNICAL DOCUMENTATION: JOB ID: [id number] Quality ID # 436: Final reports with documentation of one or more dose reduction techniques (e.g., Au tomated exposure control, adjustment of the mA and/or kV according to patient size, use of iterative reconstruction technique) 2010 [employer]- All Rights Reserved Reading location - IP/workstation name: [facility]
== END ==
LOC: RAD 13:16
PROVIDERS: ATTEND Physician Assistant
DX: M51.16 Intervertebral disc disorders with radiculopathy, lumbar region (principal)
CPT/HCPCS: 72131

== ENCOUNTER → 2018-05-11 | Outpatient (CLI) | payer MEDICARE, OTHER ==
[2018-05-11 09:50] LABS: HEMOGLOBIN 12.2 g/dL (12.0-15.5); MEAN CORPUSCULAR HEMOGLOBIN 28.8 pg (27.0-33.4); MEAN CORPUSCULAR HGB CONC 33.1 g/dL (32.0-36.0); MEAN CORPUSCULAR VOLUME 87 fl (80-97); PLATELET COUNT 257 10^3/uL (150-450); RED BLOOD COUNT 4.26 10^6/uL (3.72-5.28); RED CELL DISTRIBUTION WIDTH 13.1 % (11.5-14.0); WHITE BLOOD COUNT 6.7 10^3/uL (4.0-10.5)
[2018-05-11 10:07] LABS: APPEARANCE,URINE SLIGHTLY-CLOUDY; BILIRUBIN,URINE NEGATIVE (NEGATIVE); GLUCOSE, URINE NEGATIVE (NEGATIVE); KETONES,URINE NEGATIVE (NEGATIVE); LEUKOCYTE ESTERASE,URINE NEGATIVE (NEGATIVE); NITRITE,URINE NEGATIVE (NEGATIVE); PROTEIN,URINE NEGATIVE (NEGATIVE); URINE SPECIFIC GRAVITY 1.021
[2018-05-11 10:17] LABS: COLOR,URINE YELLOW
[2018-05-11 10:35] LABS: ANION GAP 9 (5-19); BLOOD UREA NITROGEN 18 mg/dL (7-20); CALCIUM 10.4 mg/dL (8.4-10.2); CARBON DIOXIDE 28 mmol/L (22-30); CHLORIDE 103 mmol/L (98-107); GLUCOSE 195 mg/dL (75-110); POTASSIUM 4.7 mmol/L (3.6-5.0); SODIUM 139.7 mmol/L (137-145)
== END ==
LOC: OD 08:34
PROVIDERS: ATTEND Physician Assistant Medical
DX: I12.9 Hypertensive chronic kidney disease with stage 1 through stage 4 chronic kidney disease, or unspecified chronic kidney disease (principal); E11.9 Type 2 diabetes mellitus without complications; E87.6 Hypokalemia; R60.9 Edema, unspecified; N18.9 Chronic kidney disease, unspecified
CPT/HCPCS: 36415; 80048; 81001; 85027

== ENCOUNTER → 2018-06-14 | Day surgery (SDC) | payer MEDICARE, OTHER ==
[~2018-06-14] MED LIST: BUPIVACAINE HCL 0.5 % INJ/PF 30 ML SDV ONE; METHYLPREDNISOLONE ACETATE INJ 40 MG/1 ML ML ONE
--- NOTE | 2018-06-14 14:30 | RADIOLOGY REPORT (SQ) ---
EXAM DESCRIPTION: INJECT/ASPIR HIP/SHLDR/KNEE; FLUORO/NEEDLE PLACEMENT COMPLETED DATE/TIME: 06/14/2018 1:44 pm REASON FOR STUDY: M25.552 PAIN IN LEFT HIP M25.552 PAIN IN LEFT HIP COMPARISON: None. FLUOROSCOPY TIME: 12 seconds 1 images saved to PACS. LIMITATIONS: None. PROCEDURE: SITE OF INJECTION: Anterior left hip LOCALIZING CONTRAST TYPE AND DOSE: 1 cc Omnipaque MEDICATION TYPE AND DOSE: 80 mg Depo-Medrol. 4 cc dilute bupivacaine. Using local anesthesia and sterile technique with fluoroscopic guidance, the needle was advanced into the joint. Iodinated contrast was injected to verify intraarticular placement. This was followed by therapeutic injection of the indicated medications. The needle was removed. There were no immediat e complications. IMPRESSION: THERAPEUTIC INJECTION OF THE left hip JOINT ABOVE. COMMENT: Patient medication list reviewed: Yes- Quality ID# 130:Eligible professional attests to doc umenting in the medical record they obtained, updated, or reviewed the patient's current medications. . Quality ID 145: Final reports for procedures using fluoroscopy that document radiation exposure patito nina, or exposure time and number of fluorographic images (if radiation exposure indices are not avail able) TECHNICAL DOCUMENTATION: JOB ID: [id number] [employer]- All Rights Reserved Reading location - IP/workstation name: [facility]-[email or web address]
--- NOTE | 2018-06-14 14:30 | RADIOLOGY REPORT (SQ) ---
EXAM DESCRIPTION: INJECT/ASPIR HIP/SHLDR/KNEE; FLUORO/NEEDLE PLACEMENT COMPLETED DATE/TIME: 06/14/2018 1:44 pm REASON FOR STUDY: M25.552 PAIN IN LEFT HIP M25.552 PAIN IN LEFT HIP COMPARISON: None. FLUOROSCOPY TIME: 12 seconds 1 images saved to PACS. LIMITATIONS: None. PROCEDURE: SITE OF INJECTION: Anterior left hip LOCALIZING CONTRAST TYPE AND DOSE: 1 cc Omnipaque MEDICATION TYPE AND DOSE: 80 mg Depo-Medrol. 4 cc dilute bupivacaine. Using local anesthesia and sterile technique with fluoroscopic guidance, the needle was advanced into the joint. Iodinated contrast was injected to verify intraarticular placement. This was followed by therapeutic injection of the indicated medications. The needle was removed. There were no immediat e complications. IMPRESSION: THERAPEUTIC INJECTION OF THE left hip JOINT ABOVE. COMMENT: Patient medication list reviewed: Yes- Quality ID# 130:Eligible professional attests to doc umenting in the medical record they obtained, updated, or reviewed the patient's current medications. . Quality ID 145: Final reports for procedures using fluoroscopy that document radiation exposure patito nina, or exposure time and number of fluorographic images (if radiation exposure indices are not avail able) TECHNICAL DOCUMENTATION: JOB ID: [id number] [employer]- All Rights Reserved Reading location - IP/workstation name: [facility]-[email or web address]
== END ==
LOC: RAD 12:40
PROVIDERS: ATTEND Physician Assistant
DX: M25.552 Pain in left hip (principal)
CPT/HCPCS: 20610; 77002; J3490; J1020

== ENCOUNTER → 2018-08-24 | Outpatient (CLI) | payer MEDICARE, OTHER ==
--- NOTE | 2018-08-24 14:51 | RADIOLOGY REPORT (SQ) ---
EXAM DESCRIPTION: U/S EXTREMITY NONVASCULAR LTD COMPLETED DATE/TIME: 08/24/2018 1:46 pm REASON FOR STUDY: UNSPEC INJURY OF OTHER SPEC MUSCLES, FASCIA AND TENDONS AT THIGH (S76.802D) S76.80 2D UNSP INJURY OF MUSC/FASC/TEND AT THI LEV, LEFT THIG COMPARISON: None. TECHNIQUE: Static and real time naranjo scale ultrasound Doppler spectral analysis, and color Doppler a cquired around the left knee. LIMITATIONS: None. FINDINGS: Sonographic imaging shows no abnormal fluid collection in the soft tissues. There is a sm all joint effusion. There may be some scar tissue. IMPRESSION: There is a small joint effusion. No abnormal soft tissue fluid collection. Probable sc ar tissue. TECHNICAL DOCUMENTATION: JOB ID: [id number] [employer]- All Rights Reserved Reading location - IP/workstation name: [email or web address]
== END ==
LOC: RAD 12:10
PROVIDERS: ATTEND Physician Assistant
DX: S76.80 Unspecified injury of other specified muscles, fascia and tendons at thigh level (principal); X58.XXXD Exposure to other specified factors, subsequent encounter
CPT/HCPCS: 76882

== ENCOUNTER → 2018-08-29 | Outpatient (CLI) | payer MEDICARE, OTHER ==
[2018-08-29 17:31] LABS: ABSOLUTE EOSINOPHILS # (AUTO) 0.1 10^3/uL (0.0-0.6); ABSOLUTE LYMPHOCYTES (AUTO) 2.1 10^3/uL (0.5-4.7); ABSOLUTE MONOCYTES (AUTO) 0.5 10^3/uL (0.1-1.4); ABSOLUTE NEUT (AUTO) 3.5 10^3/uL (1.7-8.2); BASOPHILS % (AUTO) 0.7 % (0-2); HEMATOCRIT 35.4 % (36.0-47.0); HEMOGLOBIN 11.6 g/dL (12.0-15.5); LYMPHOCYTES % (AUTO) 33.7 % (13-45); MEAN CORPUSCULAR HEMOGLOBIN 28.6 pg (27.0-33.4); MEAN CORPUSCULAR HGB CONC 32.7 g/dL (32.0-36.0); MEAN CORPUSCULAR VOLUME 88 fl (80-97); PLATELET COUNT 257 10^3/uL (150-450); RED BLOOD COUNT 4.05 10^6/uL (3.72-5.28); RED CELL DISTRIBUTION WIDTH 13.1 % (11.5-14.0); SEGMENTED NEUTROPHILS % (AUTO) 55.6 % (42-78); TOTAL CELLS COUNTED % (AUTO) 100 %; WHITE BLOOD COUNT 6.4 10^3/uL (4.0-10.5)
[2018-08-29 18:13] LABS: ERYTHROCYTE SEDIMENTATION RATE 17 mm/hr (0-30)
== END ==
LOC: OD 16:23
PROVIDERS: ATTEND Physician Assistant
DX: M25.562 Pain in left knee (principal)
CPT/HCPCS: 36415; 85025; 85652; 86140

== ENCOUNTER → 2018-09-11 | Outpatient (CLI) | payer MEDICARE, OTHER ==
--- NOTE | 2018-09-11 16:22 | RADIOLOGY REPORT (SQ) ---
EXAM DESCRIPTION: NM 3 PHASE BONE SCAN COMPLETED DATE/TIME: 09/11/2018 2:12 pm REASON FOR STUDY: M23.92 UNSPECIFIED INTERNAL DERANGEMENT OF LEFT KNEE M23.92 UNSPECIFIED INTERNAL DERANGEMENT OF LEFT KNEE COMPARISON: No available imaging studies for comparison. RADIONUCLIDE AND DOSE: 20 millicuries Tc99m HDP. The route of agent administration: Intravenous. ADDITIONAL DRUGS AND DOSES: None. TECHNIQUE: Following injection of the radiopharmaceutical, serial blood flow images acquired. Equil ibrium blood pool images then acquired. Routine delayed images at 3 hours acquired of the areas of c linical concern with additional focused images as needed. AREA OF INTEREST: Left knee LIMITATIONS: None. FINDINGS: VASCULAR FLOW IMAGES: Synchronous and symmetrical flow to the knees. BLOOD POOL IMAGES: There is mildly increased blood pool activity around the femoral aspect of the lef t knee arthroplasty. BONES: There appears to be some focal activity in the lateral aspect of the left femoral metaphysis a nd in the patella. KIDNEYS: Not included. OTHER: No other significant finding. IMPRESSION: There is mildly increased blood pool activity associated with the left knee and there ar e 2 small areas of focal delayed uptake in the left knee as described. These findings may suggest a relatively acute process such as loosening or infection, but the lack of increased initial flow would mitigate against that. Unfortunately, activity can persist for an extended period time after a knee arthroplasty. COMMENT: Quality measure 147: Current bone scan is compared with any available plain radiographs, p rior bone scans, and CT/MRI. TECHNICAL DOCUMENTATION: JOB ID: [id number] [employer]- All Rights Reserved Reading location - IP/workstation name: [email or web address]
== END ==
LOC: RAD 10:21
PROVIDERS: ATTEND Physician Assistant
DX: M23.92 Unspecified internal derangement of left knee (principal)
CPT/HCPCS: 78315; A9561; Q9969

== ENCOUNTER → 2018-11-09 | Outpatient (CLI) | payer MEDICARE ==
[2018-11-09 09:33] LABS: HEMATOCRIT 34.4 % (36.0-47.0); HEMOGLOBIN 11.4 g/dL (12.0-15.5); MEAN CORPUSCULAR HEMOGLOBIN 28.9 pg (27.0-33.4); MEAN CORPUSCULAR HGB CONC 33.2 g/dL (32.0-36.0); MEAN CORPUSCULAR VOLUME 87 fl (80-97); PLATELET COUNT 257 10^3/uL (150-450); RED BLOOD COUNT 3.95 10^6/uL (3.72-5.28); RED CELL DISTRIBUTION WIDTH 13.3 % (11.5-14.0); WHITE BLOOD COUNT 5.9 10^3/uL (4.0-10.5)
[2018-11-09 09:42] LABS: APPEARANCE,URINE CLEAR; BILIRUBIN,URINE NEGATIVE (NEGATIVE); COLOR,URINE YELLOW; GLUCOSE, URINE NEGATIVE (NEGATIVE); KETONES,URINE NEGATIVE (NEGATIVE); LEUKOCYTE ESTERASE,URINE NEGATIVE (NEGATIVE); NITRITE,URINE NEGATIVE (NEGATIVE); PROTEIN,URINE NEGATIVE (NEGATIVE); URINE SPECIFIC GRAVITY 1.016; UROBILINOGEN,URINE NEGATIVE mg/dL (<2.0)
[2018-11-09 10:20] LABS: ANION GAP 11 (5-19); BLOOD UREA NITROGEN 21 mg/dL (7-20); CALCIUM 10.4 mg/dL (8.4-10.2); CARBON DIOXIDE 26 mmol/L (22-30); CHLORIDE 102 mmol/L (98-107); GLUCOSE 177 mg/dL (75-110); POTASSIUM 4.8 mmol/L (3.6-5.0); SODIUM 138.5 mmol/L (137-145)
[2018-11-10 11:38] LABS: CREATININE URINE 90.5 mg/dL (Not Estab.); MICROALBUMIN URINE 7.1 ug/mL (Not Estab.)
== END ==
LOC: OD 07:43
PROVIDERS: ATTEND Physician Assistant Medical
DX: I12.9 Hypertensive chronic kidney disease with stage 1 through stage 4 chronic kidney disease, or unspecified chronic kidney disease (principal); N18.2 Chronic kidney disease, stage 2 (mild); E11.22 Type 2 diabetes mellitus with diabetic chronic kidney disease; R60.9 Edema, unspecified
CPT/HCPCS: 36415; 80048; 81001; 82043; 82570; 83735; 85027

== ENCOUNTER → 2018-11-12 | Outpatient (CLI) | payer MEDICARE ==
--- NOTE | 2018-11-13 09:52 | WOMENS IMAGING REPORT ---
EXAM DESCRIPTION: 3D SCREENING MAMMO BILAT COMPLETED DATE/TIME: 11/12/2018 10:23 am REASON FOR STUDY: Z12.31 ROUTINE 3D BILATERAL SCREENING Z12.31 ENCNTR SCREEN MAMMOGRAM FOR MALIGNAN T NEOPLASM OF JOHNNA COMPARISON: 11/09/2017 and 10/26/2016. TECHNIQUE: Standard craniocaudal and mediolateral oblique views of each breast recorded using digita l acquisition and breast tomosynthesis. LIMITATIONS: None. FINDINGS: Findings present which are benign by mammographic criteria. No suspicious masses, calcific ations or architectural distortion. Pertinent benign findings: Stable circumscribed nodule in the left breast, probably a lymph node, and a few benign calcifications. Read with the assistance of CAD. .[facility] - R2 Cenova Version 1.3 .[facility] - R2 Cenova Version 2.1 .[facility] - R2 Cenova Version 2.4 .[facility] - R2 Cenova Version 2.4 .[facility] - R2 [employer] Version 9.2 Benign mammographic findings may include one or more of the following: Smooth masses, popcorn/rim/coa rse calcifications, asymmetries, post-procedure changes, and lesions with long-standing stability. IMPRESSION: BENIGN MAMMOGRAPHIC FINDINGS. BIRADS 2 BREAST DENSITY: c. The breasts are heterogeneously dense, which may obscure small masses. BIRAD: 2 BENIGN FINDING(S) RECOMMENDATION: ROUTINE SCREENING COMMENT: The patient has been notified of the results by letter per SA requirements. Additional no tification policies are in place for contacting patient with suspicious or incomplete findings. Quality ID #225: The [employer] recommends an annual screening mammogram for women aged 40 years or over. This facility utilizes a reminder system to ensure that all patients receive reminder letters, and/or direct phone calls for appointments. This includes reminders for routine scr eening mammograms, diagnostic mammograms, or other Breast Imaging Interventions when appropriate. Th is patient will be placed in the appropriate reminder system. The [employer] (ACR) has developed recommendations for screening MRI of the breast s in certain patient populations, to be used in conjunction with mammography. Breast MRI surveillanc e may be appropriate for women with more than 20% lifetime risk of developing breast cancer as deter mined by genetic testing, significant family history of the disease, or history of mantle radiation f or Hodgkins Disease. ACR Practice Guidelines 2008. DBT Technology DBT is a type of tomographic mammography. With conventional mammography, overlapping breast tissue ma y make lesions difficult to detect, even with good compression. DBT uses an x-ray tube that rotates a round the breast, taking images at different angles. These images are then combined to create thin sl ices of the breast that the radiologist can view as a 3D reconstruction. The Hologic unit can perform full-field digital mammograms (2D imaging); or DBT (3D imaging); or both, in a combination mode that quickly performs both the mammogram and the tomosynthesis scan while the breast is still compressed. PQRS 6045F: Fluoroscopic imaging is not utilized for breast tomosynthesis. TECHNICAL DOCUMENTATION: FINDING NUMBER: (1) ASSESSMENT: (1) JOB ID: [id number] [employer]- All Rights Reserved Reading location - IP/workstation name: [email or web address]
== END ==
LOC: WI 10:05
PROVIDERS: ATTEND Internal Medicine
DX: Z12.31 Encounter for screening mammogram for malignant neoplasm of breast (principal)
CPT/HCPCS: 77063; 77067

== ENCOUNTER 2018-11-14 16:12 | Emergency (ER) | payer MEDICARE ==
--- NOTE | 2018-11-14 16:35 | ER Document Report ---
ED Medical Screen (RME) - General Chief Complaint: Fall Injury Stated Complaint: FALL INJURY Time Seen by Provider: 11/14/18 16:25 Primary Care Provider: JIMMIE BARBOSA PA-C [Primary Care Provider] - Follow up as needed TRAVEL OUTSIDE OF THE [place] IN LAST 30 DAYS: No - HPI Notes: 11/14/18 16:32 Patient is a 73-year-old female who presents to the emergency department complaining of mechanical fall at [facility] prior to arrival. Patient states that she was not looking where she was going and tripped over something that was on the ground. Patient states that she fell forward and landed on her knee initially then her hands and she hit her head. Patient states that she has not noticed any swelling to her head or any significant headache. Patient states that she does have a fat lip because she hit her face, but has no missing or loose teeth. She did not lose consciousness or have any nausea/vomiting. Patient states that the pain in her hands and knee are mild. She is not on any blood thinning medication. Denies any headache, fever, changes in vision/speech/mentation/hearing, URI, sore throat, chest pain, palpitations, syncope, cough, shortness of breath, wheeze, dyspnea, abdominal pain, nausea/vomiting/diarrhea, urinary retention, dysuria, hematuria, loss of control of bowel or bladder, numbness/tingling, saddle anesthesia, muscle paralysis/weakness, or rash. Pt will need placed in gown and have further eval performed that I cannot do in the PIT room in . I have treated and performed a rapid initial assessment of this patient. A comprehensive ED assessment and evaluation of the patient, analysis of test results and completion of medical decision making process will be conducted by additional ED providers. PHYSICAL EXAMINATION: GENERAL: Well-appearing, well-nourished and in no acute distress. A&Ox4. Answers questions appropriately. HEAD: Atraumatic, normocephalic. Non-tender. No saunders sign EYES: Pupils equal round and reactive to light, extraocular movements intact, sclera anicteric, conjunctiva are normal. No raccoon eyes/entrapment ENT: EAC clear b/l. TM's intact b/l without erythema, fluid, or perforation. Nares patent and without discharge. oropharynx clear without exudates. No tonsilar hypertrophy or erythema. Moist mucous membranes. No sinus tenderness. No hemotympanum/CSF discharge. NECK: Normal range of motion, supple without lymphadenopathy. No rigidity. + midline tenderness, mild Chest: no seatbelt sign. No flail chest. equal rise/fall. Non-tender LUNGS: Breath sounds clear to auscultation bilaterally and equal. No wheezes rales or rhonchi. HEART: Regular rate and rhythm without murmurs, rubs, gallops. ABDOMEN: Soft, nontender, nondistended abdomen. Musculoskeletal: Ext's b/l: FROM to passive/active. Strength 5+/5. No deficits noted. + tenderness left knee and hands b/l. No tenderness at the wrist b/l. Back: FROM to passive/active. Strength 5+/5. No vertebral point tenderness, stepoffs, or deformities. Extremities: No cyanosis, clubbing, or edema b/l. Peripheral pulses 2+. Capillary refill less than 2 seconds. NEUROLOGICAL: NIH 0. GCS 15. Cranial nerves grossly intact. Normal speech, normal gait. Normal sensory, motor exams. Reflexes 2+ b/l. SANAM's negative. Pronator drift negative. Heel/mcduffie, finger/nose wnl. PSYCH: Normal mood, normal affect. SKIN: Warm, Dry, normal turgor, no rashes or lesions noted. - Related Data Allergies/Adverse Reactions: citalopram [Citalopram] Allergy (Unknown, Verified 09/11/17 11:22) Weak, AMS. arms weak Past Medical History - Past Medical History Cardiac Medical History: Reports: Hx Coronary Artery Disease, Hx Hypercholesterolemia, Hx Hypertension - medicated, Hx Heart Murmur Denies: Hx Heart Attack Pulmonary Medical History: Reports: Hx Bronchitis, Hx Pneumonia Denies: Hx Asthma, Hx COPD, Hx Tuberculosis Neurological Medical History: Denies: Hx Cerebrovascular Accident, Hx Seizures Endocrine Medical History: Reports: Hx Diabetes Mellitus Type 2 Renal/ Medical History: Denies: Hx Peritoneal Dialysis GI Medical History: Reports: Hx Gastroesophageal Reflux Disease. Denies: Hx Hepatitis, Hx Hiatal Hernia, Hx Ulcer Musculoskeltal Medical History: Reports Hx Arthritis Psychiatric Medical History: Reports: Hx Depression Infectious Medical History: Denies: Hx Hepatitis Past Surgical History: Reports: Hx Section, Hx Hysterectomy, Hx Orthopedic Surgery - rotator cuff - rt, BTKR, Hx Thyroid Surgery, Hx Tubal Ligation. Denies: Hx Mastectomy, Hx Open Heart Surgery, Hx Pacemaker - Immunizations Hx Diphtheria, Pertussis, Tetanus Vaccination: Yes Physical Exam - Vital signs Vitals: Temp Pulse Resp BP Pulse Ox 98.5 F 60 18 149/59 H 99 11/14/18 16:21 11/14/18 16:21 11/14/18 16:21 11/14/18 16:21 11/14/18 16:21 Course - Vital Signs Vital signs: Temp Pulse Resp BP Pulse Ox 98.5 F 60 18 149/59 H 99 11/14/18 16:21 11/14/18 16:21 11/14/18 16:21 11/14/18 16:21 11/14/18 16:21 Doctor's Discharge - Discharge Referrals: JIMMIE BARBOSA PA-C [Primary Care Provider] - Follow up as needed
--- NOTE | 2018-11-14 17:05 | RADIOLOGY REPORT (SQ) ---
EXAM DESCRIPTION: HAND BILATERAL 2 VIEWS COMPLETED DATE/TIME: 11/14/2018 4:54 pm REASON FOR STUDY: pain s/p fall COMPARISON: None. EXAM PARAMETERS: NUMBER OF VIEWS: Two views TECHNIQUE: AP and lateral radiographic images acquired of the right and left hand. LIMITATIONS: None. FINDINGS: MINERALIZATION: Normal. BONES: No acute fracture or dislocation. No worrisome bone lesions. JOINTS: Mild osteoarthritis at the bilateral radiocarpal joint, scaphotrapezium joints, 1st carpometa carpal joints. Multifocal chondrocalcinosis throughout the bilateral wrists, MCP and interphalangeal joints SOFT TISSUES: Bilateral wrist soft tissue swelling. No foreign body. OTHER: No other significant finding. IMPRESSION: No acute fracture or malalignment. Bilateral wrist soft tissue swelling. Multifocal os teoarthritis both hands TECHNICAL DOCUMENTATION: JOB ID: [id number] [employer] All Rights Reserved Reading location - IP/workstation name: [email or web address]
--- NOTE | 2018-11-14 17:07 | RADIOLOGY REPORT (SQ) ---
EXAM DESCRIPTION: KNEE LEFT 3 VIEWS COMPLETED DATE/TIME: 11/14/2018 4:54 pm REASON FOR STUDY: pain s/p fall COMPARISON: Bone scan 09/11/2018 NUMBER OF VIEWS: Three views TECHNIQUE: AP lateral and sunrise views radiographic images acquired of the left knee. LIMITATIONS: None. FINDINGS: MINERALIZATION: Kashia bones are osteopenic BONES: No acute fracture or malalignment. Total knee replacement with patellar resurfacing. JOINT: Small suprapatellar knee joint effusion SOFT TISSUES: Diffuse prepatellar soft tissue swelling. No soft tissue gas or radiopaque foreign bod y OTHER: Caps IMPRESSION: No acute fracture or malalignment. Small knee joint effusion. Total knee replacement w ithout malalignment TECHNICAL DOCUMENTATION: JOB ID: [id number] [employer]- All Rights Reserved Reading location - IP/workstation name: [email or web address]
[2018-11-14] MEDS ORDERED: ACETAMINOPHEN WITH CODEINE #3 TABLET PO ONE (17:17)
--- NOTE | 2018-11-14 17:19 | RADIOLOGY REPORT (SQ) ---
EXAM DESCRIPTION: CT HEAD WITHOUT COMPLETED DATE/TIME: 11/14/2018 5:03 pm REASON FOR STUDY: pain s/p fall COMPARISON: None. TECHNIQUE: Axial images acquired through the brain without intravenous contrast. Images reviewed wi th bone, brain and subdural windows. Additional sagittal and coronal reconstructions were generated. Images stored on PACS. All CT scanners at this facility use dose modulation, iterative reconstruction, and/or weight based d osing when appropriate to reduce radiation dose to as low as reasonably achievable (ALARA). [facility]: Dose Right [facility]: CareDose [facility]: Dose Right [facility]: Teradose 4D [facility]: Smart [place] RADIATION DOSE: CT Rad equipment meets quality standard of care and radiation dose reduction techniq ues were employed. CTDIvol: 53.2 mGy. DLP: 991 mGy-cm. mGy. LIMITATIONS: None. FINDINGS: VENTRICLES: Normal size and contour. CEREBRUM: No masses. No hemorrhage. No midline shift. No evidence for acute infarction. Normal gra y/white matter differentiation. No areas of low density in the white matter. CEREBELLUM: No masses. No hemorrhage. No alteration of density. No evidence for acute infarction. EXTRAAXIAL SPACES: No fluid collections. No masses. ORBITS AND GLOBE: No intra- or extraconal masses. Normal contour of globe without masses. CALVARIUM: No fracture. PARANASAL SINUSES: No fluid or mucosal thickening. SOFT TISSUES: No mass or hematoma. OTHER: No other significant finding. IMPRESSION: NORMAL BRAIN CT WITHOUT CONTRAST. EVIDENCE OF ACUTE STROKE: NO. COMMENT: Quality ID # 436: Final reports with documentation of one or more dose reduction techniques (e.g., Automated exposure control, adjustment of the mA and/or kV according to patient size, use of iterative reconstruction technique) TECHNICAL DOCUMENTATION: JOB ID: [id number] [employer]- All Rights Reserved Reading location - IP/workstation name: [facility]
--- NOTE | 2018-11-14 17:23 | ER Document Report ---
Addendum entered and electronically signed by LEXI GREENE PA-C 11/14/18 18:04: Physical Exam - Vital signs Vitals: Temp Pulse Resp BP Pulse Ox 98.5 F 60 18 149/59 H 99 11/14/18 16:21 11/14/18 16:21 11/14/18 16:21 11/14/18 16:21 11/14/18 16:21 - Notes Notes: Also noted on the HEENT exam there is swelling and a small abrasion to the upper lip right side. No active bleeding. No laceration. Original Note: ED General - General Mode of Arrival: Ambulatory Information source: Patient TRAVEL OUTSIDE OF THE [place] IN LAST 30 DAYS: No - HPI Patient complains to provider of: Fall in a local parking lot. Pain to hands, left knee, head, and neck Onset: Just prior to arrival Onset/Duration: Sudden Quality of pain: Sharp Severity: Severe Pain Level: 4 Associated symptoms: None Exacerbated by: Denies Relieved by: Denies Similar symptoms previously: No Recently seen / treated by doctor: No - General Chief Complaint: Fall Injury Stated Complaint: FALL INJURY Time Seen by Provider: 11/14/18 16:25 Primary Care Provider: JIMMIE BARBOSA PA-C [Primary Care Provider] - Follow up as needed - HPI Context: Ground-level fall without precipitating event (LEXI GREENE) Notes: 73-year-old -[place] female with long history of degenerative joint disease coming in today with a ground-level fall. She was walking in a parking lot and tripped over somebody's wheelchair lifts that was mounted on the back of their car. When she fell she actually put her hands in front of her glasses to break her fall. She has resulting bilateral hand pain and also did "tap" the ground with her head. She did not lose consciousness, have dizziness, or start vomiting. She has been feeling well otherwise. She is not anticoagulated. Not having any neck pain. Having some left knee pain which is probably just chronic. (LEXI GREENE) - Related Data Allergies/Adverse Reactions: citalopram [Citalopram] Allergy (Unknown, Verified 09/11/17 11:22) Weak, AMS. arms weak Past Medical History - General Information source: Patient - Social History Smoking Status: Former Smoker Family History: Reviewed & Not Pertinent Patient has suicidal ideation: No Patient has homicidal ideation: No - Past Medical History Cardiac Medical History: Reports: Hx Coronary Artery Disease, Hx Hypercholesterolemia, Hx Hypertension - medicated, Hx Heart Murmur Denies: Hx Heart Attack Pulmonary Medical History: Reports: Hx Bronchitis, Hx Pneumonia Denies: Hx Asthma, Hx COPD, Hx Tuberculosis Neurological Medical History: Denies: Hx Cerebrovascular Accident, Hx Seizures Endocrine Medical History: Reports: Hx Diabetes Mellitus Type 2 Renal/ Medical History: Denies: Hx Peritoneal Dialysis GI Medical History: Reports: Hx Gastroesophageal Reflux Disease. Denies: Hx Hepatitis, Hx Hiatal Hernia, Hx Ulcer Musculoskeletal Medical History: Reports Hx Arthritis Psychiatric Medical History: Reports: Hx Depression Infectious Medical History: Denies: Hx Hepatitis Past Surgical History: Reports: Hx Section, Hx Hysterectomy, Hx Orthopedic Surgery - rotator cuff - rt, BTKR, Hx Thyroid Surgery, Hx Tubal Ligation. Denies: Hx Mastectomy, Hx Open Heart Surgery, Hx Pacemaker - Immunizations Hx Diphtheria, Pertussis, Tetanus Vaccination: Yes Hx Pneumococcal Vaccination: 08/14/12 Review of Systems - Review of Systems Notes: Constitutional: No fevers. No chills. EENT: No eye redness. No eye pain. No ear pain. No sore throat. Cardiovascular: No chest pain. No palpitations. Respiratory: No cough. No shortness of breath. No respiratory distress. Gastrointestinal: No abdominal pain. No nausea, vomiting, or diarrhea. Genitourinary: Atraumatic. No lesions. No pain. No discharge. Musculoskeletal: Positive for bilateral hand pain. Positive for left knee pain Skin: No rash or lesions. Lymphatic: No swollen lymph nodes. Neurologic: No headache. No syncope. Psychiatric: No suicidal or homicidal ideation. (LEXI GREENE) Physical Exam - Vital signs Vitals: Temp Pulse Resp BP Pulse Ox 98.5 F 60 18 149/59 H 99 11/14/18 16:21 11/14/18 16:21 11/14/18 16:21 11/14/18 16:21 11/14/18 16:21 - Notes Notes: General: Well-developed, well-nourished. In no acute distress. Non-toxic appearing. Well-appearing for stated age Cardiac: Well-perfused. Regular rate and rhythm. No murmurs, rubs, or gallops. Pulmonary: No respiratory distress. No cyanosis. Bilateral lung fiels are clear to auscultation. Abdominal: Non-distended. Non-rigid. Bowels sounds are present in all four quadrants. No guarding or rebound. HEENT: Head is atraumatic. Conjunctivae not reddened. No tearing. PERRL. EOMI. Orbits atraumatic. No periorbital swelling or erythema. Oropharynx is without erythema, swelling, or exudates. Neck: Supple. No adenopathy. No meningismus. Dermatologic: Warm with good turgor. No rash. Atraumatic. Chest: Atraumatic. No chest wall tenderness to palpation. Musculoskeletal: Moves all extremities well. No range of motion deficits. no muscular or joint tenderness. No paraspinal muscle tenderness. no midline spinal tenderness or step-off. There is a diffuse bilateral dorsal hand pain without obvious bony deformity or skin injury. Patient has good range of motion of all fingers and wrist and elbows. Neurovascularly intact. Good strength to bilateral upper extremities Genitourinary: Examination deferred Neurologic: No gross neurologic deficits. Psychiatric: Normal mood. (LEXI GREENE) Course - Re-evaluation Re-evalutation: 11/14/18 17:23 CTs of the head and C-spine pending. Bilateral hand x-rays are negative. Left knee x-ray pending. Tylenol 3 ordered per patient request for pain. 11/14/18 17:47 CT of the head and C-spine are both negative. Bilateral hands are negative and left knee x-rays negative. Will discharge patient home with couple extra Tylenol with codeine as this is what she periodically normally takes. (LEXI GREENE) - Vital Signs Vital signs: Temp Pulse Resp BP Pulse Ox 98.5 F 60 18 149/59 H 99 11/14/18 16:21 11/14/18 16:21 11/14/18 16:21 11/14/18 16:21 11/14/18 16:21 Discharge - Discharge Clinical Impression: Knee effusion, left Head injury Qualifiers: Encounter type: initial encounter Qualified Code(s): S09.90XA - Unspecified injury of head, initial encounter Contusion of hand(s) Qualifiers: Encounter type: initial encounter Laterality: unspecified laterality Qualified Code(s): S60.229A - Contusion of unspecified hand, initial encounter Condition: Good Instructions: Head Injury Precautions ([facility]), Contusion ([facility]), Knee Effusion ([facility]) Additional Instructions: Please ice and elevate left knee. There is some fluid around the joint which may be secondary to injury. Ice the bruising and swollen hands for comfort. Tylenol No. 3 as needed for moderate to severe pain. Please follow-up with your orthopedist if you continue to have problems with any of these affected joints or hands. Prescriptions: Acetaminophen with Codeine [Tylenol #3 Tablet] 1 each PO Q4HP PRN #15 tablet PRN Reason: Referrals: JIMMIE BARBOSA PA-C [Primary Care Provider] - Follow up as needed Print Language: Tajik
--- NOTE | 2018-11-14 17:24 | RADIOLOGY REPORT (SQ) ---
EXAM DESCRIPTION: CT CERVICAL SPINE WITHOUT COMPLETED DATE/TIME: 11/14/2018 5:03 pm REASON FOR STUDY: pain s/p fall COMPARISON: None. TECHNIQUE: Axial images acquired through the cervical spine without intravenous contrast. Images re viewed with lung, soft tissue and bone windows. Reconstructed coronal and sagittal MPR images review ed. Images stored on PACS. All CT scanners at this facility use dose modulation, iterative reconstruction, and/or weight based d osing when appropriate to reduce radiation dose to as low as reasonably achievable (ALARA). [facility]: Dose Right [facility]: CareDose [facility]: Dose Right [facility]: Teradose 4D [facility]: Smart [employer] RADIATION DOSE: CT Rad equipment meets quality standard of care and radiation dose reduction techniq ues were employed. CTDIvol: 21.4 mGy. DLP: 401 mGy-cm. mGy. LIMITATIONS: None. FINDINGS: ALIGNMENT: There is straightening of cervical lordosis due to muscle spasm or patient posi tioning MINERALIZATION: Normal. VERTEBRAL BODIES: No fractures or dislocation. DISCS: Craniocervical junction, C1-2, C2-3 are unremarkable. At C3-4, broad diffuse posterior disc bulge bony spurring is present causing mild central canal steno sis. There is no right foraminal narrowing. Moderate left foraminal narrowing from facet hypertroph y. At C4-5, moderate to high-grade central canal stenosis results from broad diffuse posterior disc bulg e, and bulky ligamentum flavum ossification. This best shown on sagittal image 18 and axial image 43 . No right foraminal narrowing. High-grade left foraminal narrowing from facet hypertrophy. At C5-6, moderate central canal stenosis results from broad diffuse posterior disc bulging and bulky ligamentum flavum calcifications/ossification. There is mild bilateral foraminal narrowing from face t hypertrophy. At C6-7, minimal posterior disc bulging, mild bilateral facet and ligament hypertrophy is present wit hout central stenosis. No right foraminal narrowing. Mild to moderate left foraminal narrowing from facet and uncovertebral hypertrophy. C7-T1 level is unremarkable FACETS, LATERAL MASSES, POSTERIOR ELEMENTS: No fractures. No dislocation. No acute findings. HARDWARE: None in the spine. VISUALIZED RIBS: No fractures. LUNG APICES AND SOFT TISSUES: No significant or acute findings. OTHER: No other significant finding. IMPRESSION: Significant central canal stenosis at C4-5 and C5-6. No acute fracture or malalignment. TECHNICAL DOCUMENTATION: JOB ID: [id number] Quality ID # [id number]: Final reports with documentation of one or more dose reduction techniques (e.g., Au tomated exposure control, adjustment of the mA and/or kV according to patient size, use of iterative reconstruction technique) 2010 [employer]- All Rights Reserved Reading location - IP/workstation name: [email or web address]
[2018-11-14 18:25] VITALS: BP 159/69
== END 2018-11-14 18:24 | disposition home or self-care (01) ==
LOC: ER 16:12
DX: S60.229A Contusion of unspecified hand, initial encounter (principal); S00.511A Abrasion of lip, initial encounter; M79.641 Pain in right hand; M79.642 Pain in left hand; W01.0XXA Fall on same level from slipping, tripping and stumbling without subsequent striking against object, initial encounter; Y92.481 Parking lot as the place of occurrence of the external cause; M25.562 Pain in left knee; M25.462 Effusion, left knee; I25.10 Atherosclerotic heart disease of native coronary artery without angina pectoris; I10 Essential (primary) hypertension; E11.9 Type 2 diabetes mellitus without complications; Z87.891 Personal history of nicotine dependence; Z88.8 Allergy status to other drugs, medicaments and biological substances; Z96.653 Presence of artificial knee joint, bilateral
CPT/HCPCS: 99284; 73562; 73120; 70450; 72125; A9270

== ENCOUNTER → 2019-01-03 | Outpatient (CLI) | payer MEDICARE ==
--- NOTE | 2019-01-03 10:17 | WOMENS IMAGING REPORT ---
EXAM DESCRIPTION: BONE DENSITY HIP/SPINE COMPLETED DATE/TIME: 01/03/2019 9:50 am REASON FOR STUDY: Z78.0 ASYMPTOMATIC MENOPAUSAL STATE Z78.0 ASYMPTOMATIC MENOPAUSAL STATE COMPARISON: 2013 TECHNIQUE: Dual-Energy X-ray Absorptiometry (DEXA) of the AP Spine and Hip. LIMITATIONS: None. FINDINGS: LUMBAR SPINE: The bone mineral density (BMD) measured from L1-L4 in the AP projection correlates with a T-score of 1.4, which is normal as defined by the World Health Organization. HIP: The bone mineral density (BMD) measured in the left hip correlates with a T-score of -1.3, previously -0.8, which is osteopenia as defined by the World Health Organization. IMPRESSION: 1. LUMBAR SPINE: NORMAL. 2. HIP: OSTEOPENIA. COMMENT: The World Health Organization defines low BMD as follows: T-score: Normal: Greater than -1.0 Osteopenia: Between -1.0 and -2.5 Osteoporosis: Less than -2.5 without fractures Established osteoporosis: Less than -2.5 with fractures In general, you may wish to consider: Diagnosis Treatment Follow-up DEXA Normal BMD Prevention 2-3 years Osteopenia Prevention/Therapy 1-2 years Osteoporosis Therapy Yearly TECHNICAL DOCUMENTATION: JOB ID: [id number] [employer]- All Rights Reserved Reading location - IP/workstation name: [email or web address]
== END ==
LOC: WI 09:24
PROVIDERS: ATTEND Internal Medicine
DX: Z78.9 Other specified health status (principal); M85.88 Other specified disorders of bone density and structure, other site
CPT/HCPCS: 77080

== ENCOUNTER → 2019-08-19 | Outpatient (CLI) | payer MEDICARE ==
--- NOTE | 2019-08-19 10:04 | RADIOLOGY REPORT (SQ) ---
EXAM DESCRIPTION: CT LT LOWER EXTREMITY WITHOUT COMPLETED DATE/TIME: 08/19/2019 9:32 am REASON FOR STUDY: PAIN IN LEFT KNEE (M25.562) M25.562 PAIN IN LEFT KNEE COMPARISON: None TECHNIQUE: Axial imaging performed through the knee with reformatted coronal and sagittal imaging wi ndowed for bone and soft tissues. Images saved to PACS. 3D IMAGING: Were 3D images as MIP, SSD, or volume rendering performed at the work station? No. All CT scanners at this facility use dose modulation, iterative reconstruction, and/or weight based d osing when appropriate to reduce radiation dose to as low as reasonably achievable (ALARA). [facility]: Dose Right [facility]: CareDose [facility]: Dose Right [facility]: Teradose 4D [facility]: [employer] LIMITATIONS: None. RADIATION DOSE: CT Rad equipment meets quality standard of care and radiation dose reduction techniq ues were employed. CTDIvol: 8.6 mGy. DLP: 386 mGy-cm. mGy. FINDINGS: SOFT TISSUES: Vascular calcification. No gross fluid collections or mass allowing for obs curing hardware artifact. BONES: Grossly appropriate arthroplasty articulation. No periprosthetic fracture or evidence of loos ening. MINERALIZATION: Normal. OTHER: No other significant finding. IMPRESSION: Intact knee arthroplasty. TECHNICAL DOCUMENTATION: JOB ID: [id number] Quality ID # [id number]: Final reports with documentation of one or more dose reduction techniques (e.g., Au tomated exposure control, adjustment of the mA and/or kV according to patient size, use of iterative reconstruction technique) 2010 [employer]- All Rights Reserved Reading location - IP/workstation name: [email or web address]
== END ==
LOC: RAD 08:58
PROVIDERS: ATTEND Physician Assistant
DX: M25.562 Pain in left knee (principal)

== ENCOUNTER → 2019-11-15 | Outpatient (CLI) | payer MEDICARE ==
[2019-11-15 11:14] LABS: POTASSIUM 4.9 mmol/L (3.6-5.0)
== END ==
LOC: OD 09:57
PROVIDERS: ATTEND Physician Assistant Medical
DX: E87.5 Hyperkalemia (principal); E83.42 Hypomagnesemia
CPT/HCPCS: 36415; 83735; 84132

== ENCOUNTER → 2020-01-16 | Outpatient (CLI) | payer MEDICARE ==
--- NOTE | 2020-01-16 10:53 | WOMENS IMAGING REPORT ---
EXAM DESCRIPTION: 3D SCREENING MAMMO BILAT IMAGES COMPLETED DATE/TIME: 01/16/2020 9:46 am REASON FOR STUDY: Z12.31 SCREENING MAMMO Z12.31 ENCNTR SCREEN MAMMOGRAM FOR MALIGNANT NEOPLASM OF B RE COMPARISON: [id number] EXAM PARAMETERS: Views: Standard craniocaudal and mediolateral oblique views of each breast recorded using digital acquisition and breast tomosynthesis. Read with the assistance of CAD. .[facility] - R2 Towel Folder Version 9.2 LIMITATIONS: Left battery pack. FINDINGS: No suspicious masses, suspicious calcifications or architectural distortion. No areas of c oncern. IMPRESSION: NEGATIVE MAMMOGRAM. BIRADS 1. BREAST DENSITY: c. The breasts are heterogeneously dense, which may obscure small masses. BIRAD: ASSESSMENT: 1 NEGATIVE RECOMMENDATION: ROUTINE SCREENING COMMENT: The patient has been notified of the results by letter per MQSA requirements. Additional no tification policies are in place for contacting patient with suspicious or incomplete findings. Quality ID #[id number]: The [employer] recommends an annual screening mammogram for women aged 40 years or over. This facility utilizes a reminder system to ensure that all patients receive reminder letters, and/or direct phone calls for appointments. This includes reminders for routine scr eening mammograms, diagnostic mammograms, or other Breast Imaging Interventions when appropriate. Th is patient will be placed in the appropriate reminder system. TECHNICAL DOCUMENTATION: FINDING NUMBER: (1) ASSESSMENT: (1) JOB ID: [id number] 2010 [employer]- All Rights Reserved Reading location - IP/workstation name: [email or web address]
== END ==
LOC: WI 09:25
PROVIDERS: ATTEND Internal Medicine
DX: Z12.31 Encounter for screening mammogram for malignant neoplasm of breast (principal)
CPT/HCPCS: 77063; 77067